=== PATIENT | female | born 1940 | race Caucasian/White ===

== ENCOUNTER 2019-10-14 07:55 | Day surgery (SDC) | payer MEDICARE, BC ==
[2019-10-03 12:42] LABS: BASOPHILS % (AUTO) 0.6 % (0-1); EOSINOPHILS # (AUTO) 0.1 X10'3 (0-0.9); EOSINOPHILS % (AUTO) 2.5 % (0-6); LYMPHOCYTES # (AUTO) 0.7 X10'3 (1.1-4.8); LYMPHOCYTES % (AUTO) 13.2 % (21-51); MEAN CORPUSCULAR HEMOGLOBIN 28.8 PG (27.0-31.0); MEAN CORPUSCULAR HGB CONC 33.9 g/dL (33.0-36.5); MEAN CORPUSCULAR VOLUME 84.9 FL (78-98); MEAN PLATELET VOLUME 9.5 FL (7.4-10.4); MONOCYTES # (AUTO) 0.4 X10'3 (0-0.9); MONOCYTES % (AUTO) 6.7 % (2-12); NEUTROPHILS # (AUTO) 4.1 X10'3 (1.8-7.7); PRE OP HEMATOCRIT 37.3 % (35.0-45.0); PRE OP HEMOGLOBIN 12.6 g/dL (12.0-16.0); PRE OP PLATELET COUNT 156 X10'3 (140-440); RED BLOOD COUNT 4.39 X10'6 (4.20-5.60); RED CELL DISTRIBUTION WIDTH 15.4 % (11.5-14.5)
[2019-10-03 12:53] LABS: PRE OP PROTIME 10.6 SECONDS (9.0-12.0)
[2019-10-03 13:35] LABS: ALBUMIN 3.9 G/DL (3.4-5.0); ALBUMIN/GLOBULIN RATIO 0.9 (1.1-1.5); ALKALINE PHOSPHATASE 149 IU/L (46-116); BLOOD UREA NITROGEN 33 MG/DL (7-18); BUN/CREATININE RATIO 17.6 (6.6-38.0); CALCIUM 8.8 MG/DL (8.5-10.1); CHLORIDE 99 MMOL/L (99-107); CREATININE 1.88 MG/DL (0.40-0.90); PRE OP ALT 46 U/L (30-65); PRE OP ANION GAP 10 (8-16); PRE OP AST 28 U/L (10-37); PRE OP BILIRUB, TOTAL 0.9 MG/DL (0.0-1.0); PRE OP GLUCOSE 195 MG/DL (70-104); PRE OP POTASSIUM 4.3 MMOL/L (3.4-5.1); PRE OP SODIUM 135 MMOL/L (135-145); TOTAL PROTEIN 8.2 G/DL (6.4-8.2); eGFR 26 ML/MIN
[~2019-10-14] VITALS: Ht 165.1 cm; Wt 73.5 kg
[~2019-10-14 07:55] MED LIST: ASPI-611 PO; ATOR40TA PO; CLON0.1T PO; DIGO125T97 PO; FEBU40TA PO; FURO80TA87 PO; GLIM4TAB7 PO; IRBE150T51 PO; LANTUS SQ; LEVO88TA2 PO; POTA20TA19 PO; ROPI1TAB4 PO; SITA25TA3 PO; cefazolin/dext.iso 2gm/100ml 100 ML IV ONE; famotidine 10mg tablet PO ONE; famotidine 20mg tablet PO ONE; ringers solution, lacted 1,000 ML IV SCH
[2019-10-14 08:05] VITALS: BP 127/79
[2019-10-14] MEDS ORDERED: LIDOcaine 0.5% (5mg/ml) 50ml vial ONE (09:28)
[2019-10-14] MEDS ORDERED: fentaNYL/PF 50MCG/1 ML 2ML syringe ONE (09:29)
[2019-10-14] MEDS ORDERED: midazolam 2 mg/2 ml injection ONE (09:30)
[2019-10-14] MEDS ORDERED: BUPIVAcaine/PF 2.5 mg/ml (0.25%) 30ml vial ONE (09:42)
[2019-10-14] MEDS ORDERED: ringers solution, lacted 1,000 ML IV SCH (09:51)
[2019-10-14] MEDS ORDERED: acetaminophen 1,000mg/100ml IV 100 ML IV PRN (09:55)
[2019-10-14] MEDS ORDERED: labetalol 20mg/4ml (5mg/ml) syringe IV PRN (09:55)
[2019-10-14] MEDS ORDERED: meperidine/PF 25mg/ml syringe IV PRN ×3 (09:55)
[2019-10-14] MEDS ORDERED: proCHLORperazine 10 MG/2 ml inj IV PRN (09:55)
[2019-10-14] MEDS ORDERED: hydrALAZINE 20mg/ml inj. IV PRN (09:55)
[2019-10-14] MEDS ORDERED: ondansetron/PF 4mg/2ml inj IV PRN (09:55)
[2019-10-14] MEDS ORDERED: morphine 4 MG/ML inj SYRINge IV PRN ×2 (09:55)
[2019-10-14] MEDS ORDERED: propofol inj 20 ML IV ONE (10:11)
[2019-10-14 10:19] VITALS: BP 93/42
--- NOTE | 2019-10-14 10:19 | NUR ---
Received from OR via EDU, accompanied by Anesthesiologist SABINO and report given by Anesthesiolgist. PATIENT WITH 22G PIV IN RIGHT UE RUNNING LR AT 100. MEDICATED FOR PAIN UPON ARRIVAL. LEFT WRIST DRESSING IS CDI WITH NO DRAINAGE. PATIENT MOVES ALL FINGERS. + CAP REFILL. VSS Addendum: 10/14/19 at 1034 by Arcenio Johnston RN, RN Amended: Links added.
[2019-10-14 10:29] VITALS: BP 100/62
[2019-10-14 10:39] VITALS: BP 101/64
--- NOTE | 2019-10-14 10:46 | NUR ---
187 BG IN RR Addendum: 10/14/19 at 1051 by Arcenio Brock - SCOT RN Amended: Links added.
[2019-10-14 10:49] VITALS: BP 103/68
--- NOTE | 2019-10-14 10:59 | NUR ---
ALL DC CRITERIA HAS BEEN MET. IV TAKEN OUT WITHOUT COMPLICATIONS. ALL INSTRUCTIONS COVERED AND ALL QUESTIONS ANSWERED. DRESSINGS CDI. OUT VIA WHEELCHAIR TO PERSONAL VEHICLE WHERE PATIENT WAS SECURED IN AND DRIVEN HOME BY FAMILY. SPOUSE AND PATIENT GIVEN ALL DC INSTRUCTIONS AND ALL QUESTIONS WERE ANSWERED. VSS. SPOUSE DRESSED PATIENT. LEFT WRIST/HAND DRESSING IS CDI. Addendum: 10/14/19 at 1120 by Arcenio Johnston RN, RN Amended: Links added.
== END 2019-10-14 10:59 | disposition home or self-care (01) ==
LOC: PAS 07:55
PROVIDERS: ATTEND Orthopaedic Surgery Hand Surgery
DX: M18.12 Unilateral primary osteoarthritis of first carpometacarpal joint, left hand (principal); I48.0 Paroxysmal atrial fibrillation; I25.118 Atherosclerotic heart disease of native coronary artery with other forms of angina pectoris; E11.22 Type 2 diabetes mellitus with diabetic chronic kidney disease; I12.9 Hypertensive chronic kidney disease with stage 1 through stage 4 chronic kidney disease, or unspecified chronic kidney disease; N18.9 Chronic kidney disease, unspecified; I25.2 Old myocardial infarction; E03.9 Hypothyroidism, unspecified; Z87.891 Personal history of nicotine dependence; Z86.73 Personal history of transient ischemic attack (TIA), and cerebral infarction without residual deficits; Z98.890 Other specified postprocedural states; Z95.1 Presence of aortocoronary bypass graft; Z88.0 Allergy status to penicillin; Z88.1 Allergy status to other antibiotic agents; Z88.8 Allergy status to other drugs, medicaments and biological substances; Z79.899 Other long term (current) drug therapy
CPT/HCPCS: 25310; 25447; 36415; 71046; 80053; 82948; 85025; 85610; 85730; J2001; J2175; J2250; J2704; J3010; J3490; J7120; A4215; A4618; A6449; A7000

== ENCOUNTER 2025-05-03 15:36 | Inpatient (IN) | payer MEDICARE, OTHER ==
[~2025-05-03] VITALS: Ht 165.1 cm; Wt 82.9 kg
[~2025-05-03 15:36] MED LIST changes: +POTA-207 PO; -POTA20TA19 PO; -ROPI1TAB4 PO; +ROPI1TAB47 PO; -cefazolin/dext.iso 2gm/100ml 100 ML IV ONE; -famotidine 10mg tablet PO ONE; -famotidine 20mg tablet PO ONE; -ringers solution, lacted 1,000 ML IV SCH
--- NOTE | 2025-05-03 16:01 | ELECTROCARDIOGRAPH REPORT ---
[facility] Test Date: 2025-05-03 Test Time: 15:50:12 Pat Name: BRENDA LUNA Department: EMERGENCY ROOM Room: Gender: F Mortgage Loan Processor: FAVIOLA : 1940 Requested By: GILA GONZALEZ Order Number: [id number] Reading MD: Measurements Intervals [place] Rate: 70 P: 123 IL: 231 QRS: -1 QRSD: 93 T: 27 QT: 485 QTc: 524 Interpretive Statements Sinus rhythm Atrial premature complex Prolonged IL interval Prolonged QT interval Please click the below link to view image of tracing.
--- NOTE | 2025-05-03 16:30 | RADIOLOGY REPORT ---
CHEST RADIOGRAPH Indication: CP Technique: Single frontal view of the chest was obtained COMPARISON: None FINDINGS: Lines and Tubes: Median sternotomy Lungs: Clear Pleura: No effusion. No pneumothorax. Cardiomediastinal contours: Unremarkable Bones: Unremarkable IMPRESSION: No acute disease.
[2025-05-03 17:42] LABS: MEAN PLATELET VOLUME 10.3 FL (7.4-10.4); RED CELL DISTRIBUTION WIDTH 17.1 % (11.5-14.5)
[2025-05-03 17:54] LABS: CREATININE 1.54 MG/DL (0.40-0.90); PRO BRAIN NATRIURETIC PEPTIDE 694 PG/ML (0-450); TOTAL CARBON DIOXIDE 25.2 MMOL/L (24-32); eCRCL 25 ML/MIN; eGFR 32 ML/MIN
--- NOTE | 2025-05-03 18:11 | Physician Documentation ---
History of Present Illness ~ Chief Complaint: Chest Pain Stated Complaint: POSS HEART ATTACK Time Seen by MD: 18:01 Mode of Arrival: Dropped Off [facility] Patient presents to the emergency room for evaluation of chest pain. Patient reports history of open heart surgery and she does have diabetes hypertension as well as atrial fibrillation reports compliance with Eliquis. This evening patient was driving home from the store when she began having sudden onset chest pain which was relieved with nitroglycerin. She denies any current chest pain or one-sided leg pain. She reports a negative stress test a proximally one year ago by Dr. Martinez. She does not smoke Medication Reconciliation Allergies: Coded Allergies: Penicillins (Verified Allergy, Mild, RASH, 10/13/19) clindamycin (Verified Allergy, Mild, ERYTHEMA, 10/13/19) Tetracyclines (Verified Adverse Reaction, Mild, HEADACHE, 10/13/19) Scheduled Aspirin (Aspir 81), 1 TAB PO DAILY, (Reported) Atorvastatin Calcium* (Lipitor*), 20 TABLET PO DAILY, (Reported) Clonidine Hcl (Clonidine Hcl), 2 TABLET PO BID, (Reported) Digoxin (LANOXIN tablet), 1 TABLET PO DAILY, (Reported) Febuxostat (Uloric), 1 TAB PO DAILY, (Reported) Furosemide* (Lasix*), 0.5 TAB PO BID, (Reported) Glimepiride* (Amaryl*), 1 TAB PO DAILY, (Reported) Insulin Glargine,Hum.rec.anlog* (Lantus*), 8 UNITS SQ HS, (Reported) Irbesartan* (Avapro*), 1 TAB PO DAILY, (Reported) Levothyroxine Sodium (Synthroid), 75 MCG PO DAILY, (Reported) Potassium Chloride* (K-Dur*), 1 TAB PO BID, (Reported) Ropinirole Hcl (Ropinirole Hcl), 1 TAB PO QID, (Reported) Sitagliptin Phosphate* (Januvia*), 100 MG PO DAILY, (Reported) Review of Systems ROS All review of systems negative except as per HPI Physical Exam Vital Signs: Temperature: 98.8, Source: Oral, Heart Rate: 65, Respiratory Rate: 16, BP: 140/59, Pulse Oximetry: 98, Weight: 82.900 Oxygen Flow Rate: 0 Physical Exam General: Patient is awake, alert, oriented x4 in no acute distress Head: Normocephalic and atraumatic. Eyes: Conjunctival normal. EOMI. PERRL. ENT: Mucous membranes moist. Neck: Supple, trachea is midline. Chest: Clear to auscultation bilaterally without rales, rhonchi, or wheezes. There is no accessory muscle use or retractions. Cardiac: Tachycardic and irregular without murmurs, gallops, or rubs. Abd: Soft, nondistended, nontender, with normoactive bowel sounds. No guarding, rebound, or rigidity. Extremities: Normal strength. Normal range of motion. No deformities or edema. No calf tenderness to palpation Progress Results/Orders Results/Orders Orders - RODERICK JAIN MD Hospitalist (05/03/25 18:39) Fill Out Med Reconciliation (05/03/25 18:39) Vital Signs 05/03/25 05/03/25 05/03/25 05/03/25 15:50 16:51 16:53 18:17 Temp 98.8 98.8 Pulse 64 65 70 Resp 16 16 18 B/P (MAP) 147/53 140/59 (86) 132/78 (96) Pulse Ox 96 98 97 O2 Flow Rate 0 0 05/03/25 19:38 Pulse 68 Resp 18 B/P (MAP) 140/84 (102) Pulse Ox 99 Laboratory Tests Test 05/03/25 15:53 05/03/25 18:09 05/03/25 18:57 White Blood Count 6.0 Red Blood Count 4.15 L Hemoglobin 11.4 L Hematocrit 34.7 L Mean Corpuscular Volume 83.5 Mean Corpuscular Hemoglobin 27.5 Mean Corpuscular Hemoglobin Concent 32.9 L Red Cell Distribution Width 17.1 H Platelet Count 147 Mean Platelet Volume 10.3 Neutrophils (%) (Auto) 73.0 Lymphocytes (%) (Auto) 15.0 L Monocytes (%) (Auto) 5.6 Eosinophils (%) (Auto) 5.5 Basophils (%) (Auto) 0.9 Neutrophils # (Auto) 4.4 Lymphocytes # (Auto) 0.9 L Monocytes # (Auto) 0.3 Eosinophils # (Auto) 0.3 Basophils # (Auto) 0.1 CBC Comment Sodium Level 138 Potassium Level 4.2 Chloride Level 103 Carbon Dioxide Level 25.2 Anion Gap 10 Blood Urea Nitrogen 30 H Creatinine 1.54 H Estimated GFR/1.73 m2 32 BUN/Creatinine Ratio 19.5 Glucose Level 137 H Calcium Level 9.1 Troponin I High Sensitivity 6 7 8 Pro-B-Type Natriuretic Peptide 694 H Albumin 3.8 Chemistry Comments Troponin I High Sens Percent Delta 16 14 Troponin I Hi Sens Absolute Change 1 1 EKG/XRAY/CT/US/VASC/MRI EKG : Additional Comment EKG interpreted by myself shows time of 15 50, rate 70, sinus rhythm, normal axis, no ST changes Chest X-Ray : Additional Comments Exam: CHEST,SINGLE VIEW CHEST RADIOGRAPH Indication: CP Technique: Single frontal view of the chest was obtained COMPARISON: None FINDINGS: Lines and Tubes: Median sternotomy Lungs: Clear Pleura: No effusion. No pneumothorax. Cardiomediastinal contours: Unremarkable Bones: Unremarkable IMPRESSION: No acute disease. Medical Decision Making Findings Patient presented to the emergency room with chest pain as per HPI. Differentia ls include but are not limited to ACS, pulmonary embolism, musculoskeletal pain, pneumothorax therefore emergent labs and imaging indicated. Labs and imaging reassuring. Of concern is patient's story with decreased pain with nitroglycerin. Given patient's history age and risk factors she is considered high risk with a heart score of six and we will admit for further investigation. No current pain or calf tenderness and he had not feel patient requires investigation into possible pulmonary embolism or acute aortic pathology Departure Admitted to Inpatient Unit: yes, to hospitalist Impression: Primary Impression: Chest pain Condition: Guarded Referrals: NO PRIMARY CARE PROVIDER (PCP) Signature Scribe Signature: No scribe Attestation: The note accurately reflects work and decisions made by me.Roderick Jain MD 05/03/25 18:45 RODERICK JAIN MD May 03, 2025 18:11
[2025-05-03] MEDS ORDERED: magnesium hydroxide 30ml (MOM) UD suspension PO PRN (19:55)
[2025-05-03] MEDS ORDERED: glucagon, human recombinant 1mg kit SUBCUT PRN (19:55)
[2025-05-03] MEDS ORDERED: mag hydrox/Alum hydrox/simeth 30ml oral suspension PO PRN (19:55)
[2025-05-03] MEDS ORDERED: ondansetron/PF 4mg/2ml inj IV PRN (19:55)
[2025-05-03] MEDS ORDERED: magnesium sulf-water 2g/50mL 50 ML IV PRN (19:55)
[2025-05-03] MEDS ORDERED: dextrose 50%-water 50ml dispensing syringe IV PRN ×2 (19:55)
[2025-05-03] MEDS ORDERED: magnesium Cl slow-release 64mg tablet PO PRN (19:55)
[2025-05-03] MEDS ORDERED: potassium Cl 40MEQ/1/2NS 520ml 520 ML IV PRN (19:55)
[2025-05-03] MEDS ORDERED: DEXTROSE 15 GM of carb/4 tabs (each vial/BOTTLE has 4 tablets) PO PRN ×2 (19:55)
[2025-05-03] MEDS ORDERED: magnesium sulf-water 4G/100mL 100 ML IV PRN (19:55)
[2025-05-03] MEDS ORDERED: potassium Cl 20 mEq SR tablet PO PRN (19:55)
[2025-05-03] MEDS: K and/or MAG REPLACEMENT MC SCH (20:00)
--- NOTE | 2025-05-03 20:25 | HISTORY AND PHYSICAL-Residence ---
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 during a stressful situation, associated with shortness of breath, nausea and weakness. The chest pain subsided immediately after 2 sublingual nitroglycerin tablets and had a duration of approximately 30 minutes. She denies palpitation, dizziness or lightheadedness but states recurrent episodes of bradycardia. Patient also reports increasing gain of weight recently associated with tiredness and mildly lower quadrant abdominal discomfort and distention. No other symptom reported. Allergies: Coded Allergies: Penicillins (Verified Allergy, Mild, RASH, 10/13/19) clindamycin (Verified Allergy, Mild, ERYTHEMA, 10/13/19) Tetracyclines (Verified Adverse Reaction, Mild, HEADACHE, 10/13/19) Home Medications Home Medications Active Reported Lantus* (Insulin Glargine) 100 Unit/1 Ml Vial 8 Units SQ HS Clonidine Hcl 0.1 Mg Tablet 2 Tablet PO BID Uloric (Febuxostat) 40 Mg Tablet 1 Tab PO DAILY Avapro* (Irbesartan) 150 Mg Tablet 1 Tab PO DAILY LANOXIN tablet (Digoxin) 125 Mcg Tablet 1 Tablet PO DAILY Synthroid (Levothyroxine Sodium) 88 Mcg Tablet 75 Mcg PO DAILY Aspir 81 (Aspirin) 81 Mg Tablet.dr 1 Tab PO DAILY Januvia* (Sitagliptin Phosphate*) 25 Mg Tablet 100 Mg PO DAILY Amaryl* (Glimepiride) 4 Mg Tablet 1 Tab PO DAILY Lipitor* (Atorvastatin Calcium) 40 Mg Tablet 20 Tablet PO DAILY K-Dur* (Potassium Chloride) 20 Meq Tab.prt.sr 1 Tab PO BID Lasix* (Furosemide) 80 Mg Tablet 0.5 Tab PO BID Ropinirole Hcl 1 Mg Tablet 1 Tab PO QID Past Medical History Past Medical History Atrial fibrillation Type 2 diabetes mellitus complicated with peripheral neuropathy Hyperlipidemia Coronary artery disease COPD Chronic hypoxemic respiratory failure Chronic kidney disease Hypothyroidism Heart failure (unknown EF) Lower extremity lymphedema Chronic venous stasis Restless legs syndrome Recurrent UTI Past Surgical History Surgical History Comment CABG in 2017 Mitral valve repair Aortic valve replacement Right middle lung surgery Appendectomy Tonsillectomy Right foot surgery Past Social History Social History Comment Patient quit smoking when she was 37-year-old. No alcohol or illicit drug use reported. She lives with her who has dementia. Smoking: Quit greater than 1 year Alcohol Use: None Drug Use: None Lives with: Spouse Lives In: Home Occupation: retired ROS Constitutional: Reports: malaise, weakness Eyes: Reports: no symptoms reported ENT: Reports: no symptoms reported Respiratory: Reports: no symptoms reported Cardiovascular: Reports: see HPI, chest pain Gastrointestinal: Reports: abdomen distended, nausea, poor appetite Genitourinary: Reports: no symptoms reported Female Genitalia: Reports: no reported symptoms Neurological: Reports: no symptoms reported Musculoskeletal: Reports: no symptoms reported Integumentary: Reports: no symptoms reported Allergic/Immunologic: Reports: no symptoms reported Hematologic/Lymphatic: Reports: no symptoms reported Endocrine: Reports: no symptoms reported Psychiatric: Reports: no symptoms reported Exam Vitals: Vital Signs Date Time Temp Pulse Resp B/P (MAP) Pulse Ox O2 Delivery O2 Flow Rate FiO2 05/03/25 19:38 68 18 140/84 (102) 99 05/03/25 16:53 98.8 0 General: General: The patient is well developed, well nourished, nontoxic appearing and is in no acute distress. Skin: [place], warm and dry with no rashes. HEENT: Head was normocephalic and atraumatic. Eyes - pupils equal, round, reactive to light and accommodation. Extraocular movements were intact. Conjunctivae were nonicteric. Ears - bilateral tympanic membranes were normal. The mouth and oropharynx were clear with moist mucous membranes. There were no pharyngeal exudates or erythema. Neck: Supple and nontender. There was no jugular venous distention, lymphadenopathy, thyromegaly or masses. Chest: Clear to auscultation bilaterally without wheezes, rales or rhonchi. No accessory muscle use. No dullness to percussion. Heart: Rate regular and rhythmic. S1, S2. 2/6+ subjective systolic murmur. Palpation of the chest wall was normal. No rubs or thrills. Abdomen: Soft, mild tender the lower quadrant but nondistended. Positive bowel sounds. No guarding or rebound. No hepatosplenomegaly or palpable masses. Extremities: Bilateral lower extremity 2+/4+ edema. No cyanosis or clubbing. The patient moves all extremities. Pulses were equal and symmetric. Neurologic: Sensation was intact to light touch throughout. Motor strength was 5/5 in all four extremities. Psychologic: The patient was oriented to person, place and time. The patient demonstrated appropriate judgement and insight Diagnostic Data Last Recorded Lab Results: 05/03/25 1553 05/03/25 1553 Diagnostic Data: Laboratory Tests Test 05/03/25 15:53 05/03/25 18:09 05/03/25 18:57 05/03/25 20:26 White Blood Count 6.0 X10'3 Red Blood Count 4.15 X10'6 Hemoglobin 11.4 g/dl Hematocrit 34.7 % Mean Corpuscular Volume 83.5 FL Mean Corpuscular Hemoglobin 27.5 PG Mean Corpuscular Hemoglobin Concent 32.9 g/dL Red Cell Distribution Width 17.1 % Platelet Count 147 X10'3 Mean Platelet Volume 10.3 FL Neutrophils (%) (Auto) 73.0 % Lymphocytes (%) (Auto) 15.0 % Monocytes (%) (Auto) 5.6 % Eosinophils (%) (Auto) 5.5 % Basophils (%) (Auto) 0.9 % Neutrophils # (Auto) 4.4 X10'3 Lymphocytes # (Auto) 0.9 X10'3 Monocytes # (Auto) 0.3 X10'3 Eosinophils # (Auto) 0.3 X10'3 Basophils # (Auto) 0.1 X10'3 CBC Comment Sodium Level 138 MMOL/L Potassium Level 4.2 MMOL/L Chloride Level 103 MMOL/L Carbon Dioxide Level 25.2 MMOL/L Anion Gap 10 Blood Urea Nitrogen 30 MG/DL Creatinine 1.54 MG/DL Estimated GFR/1.73 m2 32 ML/MIN BUN/Creatinine Ratio 19.5 Glucose Level 137 MG/DL Lactic Acid Level 0.9 MMOL/L Calcium Level 9.1 MG/DL Troponin I High Sensitivity 6 ng/L 7 ng/L 8 ng/L Pro-B-Type Natriuretic Peptide 694 PG/ML Albumin 3.8 G/DL 3.7 G/DL Chemistry Comments Total Bilirubin 0.9 MG/DL Direct Bilirubin 0.2 MG/DL Aspartate Amino Transf (AST/SGOT) 16 U/L Alanine Aminotransferase (ALT/SGPT) 18 U/L Alkaline Phosphatase 112 IU/L Troponin I High Sens Percent Delta 16 % 14 % Troponin I Hi Sens Absolute Change 1 ng/L 1 ng/L C-Reactive Protein 0.08 MG/DL Total Protein 6.8 G/DL Globulin 3.1 G/DL Albumin/Globulin Ratio 1.2 Triglycerides Level 106 MG/DL Cholesterol Level 146 MG/DL LDL Cholesterol 62 MG/DL HDL Cholesterol 65 MG/DL Cholesterol/HDL Ratio 2.2 D-Dimer Comment Advance Care Planning Advanced Care plannin - 30 Minutes (I have discussed advanced care directives and the patient wants to be DNR) Additional Plan Assessment This is a 84-year-old female patient with an extensive past medical history of atrial fibrillation, 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 Troponin curve was negative and the patient was admitted for further workup. Plan Chest pain, high risk patient HEART Score 6 points, [place] 0 points Troponin negative EKG 15:50: Sinus rhythm, nonspecific ST-T changes CXR: No acute disease. Ordered D-dimer Ordered procalcitonin and C-reactive protein Ordered echocardiogram Consider stress test in a.m given the classic presentation Atrial fibrillation Controlled heart rate Current in sinus Continue Eliquis 5 mg b.i.d. Type 2 diabetes mellitus complicated with peripheral neuropathy Ordered A1c Continue Lantus 8 units at bedtime Mild hyper/hypoglycemia protocol Hyperlipidemia Ordered lipid panel Continue atorvastatin 40 mg daily Coronary artery disease Continue aspirin and atorvastatin. COPD - no signs of acute exacerbation Chronic hypoxemic respiratory failure Continue night O2 Albuterol p.r.n. Chronic kidney disease Creatinine 1.54 (baseline 1.88), BUN 30 Hypothyroidism Ordered TSH Continue levothyroxine 88 mcg Heart failure (unknown EF) Lower extremity lymphedema Chronic venous stasis Pending echocardiogram Lasix 20 mg IV b.i.d. Normochromic normocytic anemia, most likely from CKD Hemoglobin 11.4, hematocrit 34.7, MCV 83.5, RDW 17.1 Ordered iron studies Ordered vitamin B12 Restless legs syndrome Continue home medication Recurrent UTI Ordered urinalysis Code Status: DNR DVT prophylaxis: Eliquis Analgesia/sedation: Morphine Line/tube: PIV GI prophylaxis: None Nutrition: Heart healthy diet Physical therapy: Yes Disposition: Admit to PCU/telemetry. Jenny Addendum #1 Neuro: - Monitor for delirium Restless leg syndrome: gabapentin for symptom relief #2 CV: The patient has a history of CAD and suspected acute coronary syndrome. - Continue ASA and statin therapy. Atrial fibrillation with CHADS-2 Score of 2: - Initiate rate control to maintain heart rate < 110 bpm. - Start anticoagulation with Eliquis unless contraindicated. #3 Pulm: History and exam suggestive of COPD. - Continue bronchodilator nebs #4 GI: - Advance diet as tolerated when approved by primary team. #5 Renal: The patient has a history of CKD. - Monitor for signs of fluid overload. - Avoid nephrotoxic agents and adjust medications for renal function. Hypokalemia: - Administer potassium replacement therapy. #6 ID: - Monitor for signs of infection. #7 Endo: The patient has type 2 diabetes mellitus. - Start insulin sliding scale to maintain serum glucose levels between 150- 180 mg/dL. - Continue Lantus The patient has a history of hyperlipidemia: - Continue statin therapy #8 Heme/Onc: - Monitor for bleeding and thrombotic events. - Maintain Hgb >7 g/dL and platelets >10,000/mm. #9 PPx: - Continue chemical DVT prophylaxis I saw this patient and completed a full visual exam via audio-visual HIPAA compliant technology. Date of Service: May 03, 2025 Billing Provider: ADY HOYOS MD, LUCAS, RES May 03, 2025 20:25 ADY HOYOS MD May 04, 2025 11:41
[2025-05-03] MEDS ORDERED: APIX5TAB3 PO (20:46)
[2025-05-03 20:54] LABS: CHOL/HDL RATIO 2.2 (0.00-4.99); LDL CHOLESTEROL 62 MG/DL (50-100)
[2025-05-03] MEDS: INSULIN LISPRO 100 UNIT/ML INSULN.PEN MULTI-DOSE SQ SCH (21:00)
[2025-05-03] MEDS ORDERED: ipratropium 0.5 MG/2.5ML nebule IH PRN (21:00)
[2025-05-03] MEDS ORDERED: albuterol 2.5 MG/3 ML nebule NEB PRN (21:00)
[2025-05-03] MEDS: docusate sod 100mg capsule PO SCH (21:03)
[2025-05-03] MEDS: insulin glargine (Lantus) pen - multi-dose SQ SCH (21:19)
[2025-05-03] MEDS: hydrALAZINE 20mg/ml inj. IV PRN (21:44)
[2025-05-03 22:00] VITALS: BP 170/62; PULSE 77; RESP 12; RESP 18; TEMP 97.6; O2SAT 92; O2SAT 99
[2025-05-03 22:19] LABS: % IRON SATURATION 16 % (11-46)
[2025-05-03 23:35] VITALS: PULSE 68; RESP 18; O2SAT 100
[2025-05-04] VITALS (8 sets, daily range): BP systolic 102–159; BP diastolic 38–52; PULSE 58–67; RESP 14–20; TEMP 97–97.6; O2SAT 95–100
--- NOTE | 2025-05-04 06:23 | ELECTROCARDIOGRAPH REPORT ---
[facility] Test Date: 2025-05-04 Test Time: 00:03:11 Pat Name: BRENDA LUNA Department: [facility] Patient ID: [id number] Room: [place] [address] [address] Gender: F Eap Counselor: : 1940 Requested By: WILLIAN AGUIAR Order Number: [id number] Reading MD: Dr. ATUL Horner Measurements Intervals [place] Rate: 76 P: 0 [place]: 0 QRS: 11 QRSD: 100 T: 19 QT: 415 QTc: 467 Interpretive Statements normal sinus rhythm. , baseline artifact. Low voltage, precordial leads Nonspecific repol abnormality, inferior leads Electronically Signed On 05-05-2025 20:18:[address] ATUL Horner Please click the below link to view image of tracing.
[2025-05-04 06:59] LABS: MEAN PLATELET VOLUME 9.8 FL (7.4-10.4); RED CELL DISTRIBUTION WIDTH 16.9 % (11.5-14.5)
[2025-05-04 07:24] LABS: CREATININE 1.55 MG/DL (0.40-0.90); TOTAL CARBON DIOXIDE 30.7 MMOL/L (24-32); eCRCL 25 ML/MIN; eGFR 32 ML/MIN
[2025-05-04] MEDS: FEBUXOSTAT 40MG TAB PO SCH (08:00)
[2025-05-04] MEDS ORDERED: ISOS30TA10 PO (08:47)
[2025-05-04] MEDS: levoTHYROXINE 75mcg tablet PO SCH (08:48)
[2025-05-04] MEDS: potassium Cl 20 mEq SR tablet PO PRN (08:59)
[2025-05-04] MEDS: digoxin 125mcg (0.125mg) tablet PO SCH (09:34)
[2025-05-04] MEDS ORDERED: LOSA-416 PO (10:05)
[2025-05-04] MEDS ORDERED: PANT40TA54 PO (10:05)
[2025-05-04] MEDS ORDERED: FERR-29 PO (10:05)
[2025-05-04] MEDS ORDERED: CITA10TA93 PO (10:05)
[2025-05-04] MEDS ORDERED: SOTA80TA PO (10:05)
[2025-05-04] MEDS ORDERED: CALC-965 PO (10:05)
[2025-05-04] MEDS ORDERED: LEVE500T PO (10:05)
[2025-05-04] MEDS ORDERED: POTA-197 PO (11:56)
[2025-05-04] MEDS ORDERED: FURO40TA4 PO (11:56)
[2025-05-04] MEDS ORDERED: CITA-311 PO (11:58)
--- NOTE | 2025-05-04 14:01 | CONSULTATION REPORT ---
Cardiac Consultation Report Providers to CC CC: NEELA PUGH MD ~ Progress Note: 84yo woman with HTN, HLD, DM, CAD(s/p CABG), HFimpEF, Afib, CKDIII admitted with CP x 1 day. States she felt anxious/stressed, then had CP that lasted ~ 15 minutes. Took a few NTG that she believes did not really help, but CP eventually subsided. Since, reports CP resolved. Subjective Subjective In the interim, no current CP/SOB. Does reports some bruising to her hands. Objective Vitals Vital Signs Date Time Temp Pulse Resp B/P (MAP) Pulse Ox O2 Delivery O2 Flow Rate FiO2 05/04/25 12:34 63 20 96 Room Air* 0 21 05/04/25 02:00 97.0 118/52 (74) Lab Results: 05/04/25 0625 05/04/25 0625 Objective GENERAL:Awake, alert NAD CV: Reg rhythm, normal rate. ++II/ SM RUSB LUNGS: CTABT GI:+ BS, soft, non-tender EXT: 2+ radial pulses, no edema PSYCH: cooperative Coagulation Studies Laboratory Tests Test 05/03/25 20:26 D-Dimer 0.33 MG/L FEU (0-0.50) D-Dimer Comment Problem\Assessment\Plan Problems/Diagnosis: (1) Chest pain Assessment & Plan: Suspect non-cardiac. EKG without acute ischemic changes, Trop neg. Recent MPI neg. --Cont GDMT with Statin. Not on ASA due to OAC. Cont Sotalol for Afib. --Cont BP control MARISOL PUGH MD May 04, 2025 14:01
[2025-05-04] MEDS ORDERED: LEVO75TA7 PO (14:50)
--- NOTE | 2025-05-04 17:34 | PROGRESS NOTE- Residence ---
Progress Note - Resident Providers to CC Resident Creating Document: MIGUELLUISA, BRIAN ~ Central Line/PICC still needed: N\A Antibiotic Timeout Antibiotic Ordered?: No Subjective The patient was examined bedside. She did not complain of any chest pain today. No complaints of breathlessness, palpitation, pedal edema, dizziness. No acute symptoms over the night. One episode of black tarry stools was reported by the nurse. This is the 1st time that the patient has noticed black tarry stools. Objective Vital Signs Date Time Temp Pulse Resp B/P (MAP) Pulse Ox O2 Delivery O2 Flow Rate FiO2 05/04/25 12:34 63 20 96 Room Air* 0 21 05/04/25 02:00 97.0 118/52 (74) Result Diagram: 05/04/2562405/04/25624 General: The patient is well developed, well nourished, nontoxic appearing and is in no acute distress. Skin: [place], warm and dry with no rashes. HEENT: Head was normocephalic and atraumatic. Eyes - pupils equal, round, reactive to light and accommodation. Extraocular movements were intact. Conjunctivae were nonicteric. Ears - bilateral tympanic membranes were normal. The mouth and oropharynx were clear with moist mucous membranes. There were no pharyngeal exudates or erythema. Neck: Supple and nontender. There was no jugular venous distention, lymphadenopathy, thyromegaly or masses. Chest: Clear to auscultation bilaterally without wheezes, rales or rhonchi. No accessory muscle use. No dullness to percussion. Heart: Rate regular and rhythmic. S1, S2. 2/6+ subjective systolic murmur. Palpation of the chest wall was normal. No rubs or thrills. Abdomen: Soft, mild tender the lower quadrant but nondistended. Positive bowel sounds. No guarding or rebound. No hepatosplenomegaly or palpable masses. Extremities: Bilateral lower extremity 2+/4+ edema. No cyanosis or clubbing. The patient moves all extremities. Pulses were equal and symmetric. Neurologic: Sensation was intact to light touch throughout. Motor strength was 5/5 in all four extremities. Psychologic: The patient was oriented to person, place and time. 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 05/04/2025: D-dimer 0.33, digoxin toxicity negative Echo Normal LV size and wall thickness. Overall systolic function is normal. LVEF is 60%. The aortic root is normal in size. The ascending aorta is normal in size. The IVC is normal in size and collapses >50% with inspiration. The pulmonary valve is normal in structure with mild insufficiency. The tricuspid valve is normal in structure with moderate regurgitation. Normal pericardium. No effusion. Cardiology Dr. Martinez consulted. Paroxysmal Atrial fibrillation [id number] Controlled heart rate, reports paroxysmal bradycardia Current in sinus Patient was taking Eliquis 5 mg b.i.d., we changed it to 2.5 b.i.d. as she meet the criteria age and kidney failure We will plan for loop recorder later with Dr. Martinez Type 2 diabetes mellitus complicated with peripheral neuropathy 05/04/2025: H A1c 6.6 Continue Lantus 8 units at bedtime Mild hyper/hypoglycemia protocol Hyperlipidemia 05/04/2025: Triglyceride 106, cholesterol 146, LDL 62, HDL 65 Continue atorvastatin 40 mg daily COPD - no signs of acute exacerbation Chronic hypoxemic respiratory failure Continue night O2 Albuterol p.r.n. Acute on Chronic kidney disease Creatinine 1.54 (baseline 1.88), BUN 30 IV Lasix 20 b.i.d. started Hypothyroidism: 05/04/2025: TSH 1.06 Continue levothyroxine 88 mcg Normochromic normocytic anemia, most likely from CKD Hemoglobin 11.4, hematocrit 34.7, MCV 83.5, RDW 17.1 05/04/2025: Iron 49, TIBC 302, % saturation 16, ferritin 47 Transferrin reports pending Patient reported 2 times back stool today Ordered stool occult blood Restless legs syndrome Continue home medication Recurrent UTI Denied any urinary symptoms Code Status: DNR DVT prophylaxis: Eliquis Analgesia/sedation: Morphine Line/tube: PIV GI prophylaxis: None Nutrition: Heart healthy diet Physical therapy: Yes Disposition: Admit to PCU/telemetry. Luisa Rivera PGY1, Internal Medicine Date of Service: May 04, 2025 Billing Provider: XIOMARA LUIS MD Common Visit Codes: [id number] INP/OBS CARE(HIGH) LUISA RIVERA, RES May 04, 2025 17:34 BRITTON BOONE, RES May 04, 2025 19:52 XIOMARA LUIS MD May 05, 2025 06:22
[2025-05-04 19:10] LABS: OCCULT BLOOD STOOL NEGATIVE (Neg)
[2025-05-04] MEDS: sotalol HCl 40mg (1/2 tablet) PO SCH (20:17)
[2025-05-05 02:00] VITALS: BP 125/90; PULSE 68; RESP 13; TEMP 97.5; O2SAT 97
[2025-05-05 06:00] VITALS: BP 146/53; PULSE 55; RESP 14; TEMP 97.6; O2SAT 95
[2025-05-05 06:54] LABS: MEAN PLATELET VOLUME 9.5 FL (7.4-10.4); RED CELL DISTRIBUTION WIDTH 16.7 % (11.5-14.5)
[2025-05-05 07:46] LABS: CREATININE 1.56 MG/DL (0.40-0.90); TOTAL CARBON DIOXIDE 29.8 MMOL/L (24-32); eCRCL 25 ML/MIN; eGFR 32 ML/MIN
[2025-05-05 08:00] VITALS: RESP 16; O2SAT 96
[2025-05-05] MEDS ORDERED: APIX5TAB3 PO (08:53)
[2025-05-05 09:02] VITALS: PULSE 65; RESP 20; O2SAT 95
--- NOTE | 2025-05-05 09:19 | CARDIOLOGY REPORT ---
APPROVED REPORT EXAM: Comprehensive 2D, Doppler, and color-flow Echocardiogram. Patient Location: [facility] Blood Pressure: 118/52 mmHg Heart Rate: 66 bpm Indications Valvular Heart Disease ProBNP: 694 HX of Coronary Artery Disease HX of CABG (2016) Aortic Valve Replacement (2016) Mitral Valve Repair (2016) Hypertension Atrial Fibrillation Diabetes ARC WELDER: Radha Martinez MD Previous ECHO: 12/13/24, CVC, EF: 60; mod RVE/LAE; AVR GRAD: 50 / 29; PKV: 3.55; MV Ring GRAD: 24 / 6; PKV: 2.46; m MR; m-mod TR 2D Dimensions LA Diam3.9 cm IVSd 0.9 (0.7-1.1cm) LVDd 4.0 cm PWd 1.2 (0.7-1.1cm) IVSs 0.8 (0.8-1.2cm) LVDs 2.7 (2.5-4.0cm) PWs 1.9 (0.8-1.2cm) LVEF(%) 60.3 (>50%) Ao Asc Diam.3.05 cmIVC 19.30 mm FS (%) 31.7 % SV 41.4 ml CO 2.4 L/min M-Mode Dimensions Left Atrium(MM) 3.30 (2.5-4.0cm) Aortic Root 3.91 (2.2-3.7cm) Aortic Valve AoV Peak Ankush. 300.6 cm/s AoV VTI 77.5 cm AO Peak GR. 36.2 mmHg AO Mean GR. 19 mmHg LVOT VTI 44.36 cm LVOT Peak Ankush. 166.2 cm/s Mitral Valve MV E Velocity 184.8 cm/s MV Peak Gr. 21 mmHg MV DECEL TIME 200 ms MV A Velocity 22.6 cm/s MV Mean Gr. 4 mmHg MV PHT 56 ms E/A Ratio 8.2 MVA (PHT) 3.93 cm2 MV TMet747.3 cm/sMV VMean85.1 cm/s MV VTI62.3 cm TDI Lateral E' P. V6.69 cm/s E/Lateral E' 27.6 Pulmonary Valve PAEDP14.26 mmHg Tricuspid Valve TR P. Velocity 391 cm/s RAP ESTIMATE 10 mmHg TR Peak Gr. 61 mmHg RVSP 71 mmHg LEFT VENTRICLE Normal LV size and wall thickness. Overall systolic function is normal. LVEF is 60%. RIGHT VENTRICLE Right ventricle is mildly dilated with adequate function. Elevated right heart pressures with an RVSP of 71 mmHg. ATRIA Left atrium is mildly dilated. AORTIC VALVE Bioprosthetic aortic valve is present, well seated and functioning normally. Peak / mean gradients ar e 36 / 19 mmHg. Peak velocity is measured at 3.00 m/sec. No insufficiency. MITRAL VALVE Mitral Valve Ring present, well seated and functioning normally. Peak / mean gradients are 21 / 4 mmH g. No stenosis. Moderate regurgitation. TRICUSPID VALVE The tricuspid valve is normal in structure with moderate regurgitation. PULMONIC VALVE The pulmonary valve is normal in structure with mild insufficiency. GREAT VESSELS The aortic root is normal in size. The ascending aorta is normal in size. The IVC is normal in size a nd collapses >50% with inspiration. PERICARDIUM Normal pericardium. No effusion. Other Information Study Quality: Adequate Conclusion Normal LV size and wall thickness. Overall systolic function is normal. LVEF is 60%. Right ventricle is mildly dilated with adequate function. Elevated right heart pressures with an RVSP of 71 mmHg. Left atrium is mildly dilated. Bioprosthetic aortic valve is present, well seated and functioning normally. Peak / mean gradients a re 36 / 19 mmHg. Peak velocity is measured at 3.00 m/sec. No insufficiency. Mitral Valve Ring present, well seated and functioning normally. Peak / mean gradients are 21 / 4 mm Hg. No stenosis. Moderate regurgitation. The tricuspid valve is normal in structure with moderate regurgitation. The pulmonary valve is normal in structure with mild insufficiency. Normal pericardium. No effusion.
[2025-05-05 11:00] VITALS: BP 142/81; PULSE 79; RESP 14; TEMP 98; O2SAT 96
--- NOTE | 2025-05-05 13:39 | DISCHARGE SUMMARY-Residence ---
Discharge Summary Providers to Resident Creating Document: SONSHAIKULDIPEdgarLUISA, RES ~ Discharge Summary Admission Diagnosis: ANGINA PECTORIS Hospital Course DATE OF ADMISSION: 05/03/2025 DATE OF DISCHARGE: 05/05/2025 Discharge Diagnosis\Comment: CORONARY ARTERY DISEASE- STABLE ANGINA CHRONIC HEART FAILURE WITH PRESERVED EJECTION FRACTION PAROXYSMAL ATRIAL FIBRILLATION, WITH CONTROLLED HEART RATE ACUTE ON CHRONIC KIDNEY DISEASE NORMOCHROMIC NORMOCYTIC ANEMIA MOST LIKELY FROM CKD TYPE 2 DIABETES MELLITUS COMPLICATED WITH PERIPHERAL NEUROPATHY HYPERLIPIDEMIA COPD/CHRONIC HYPOXEMIC RESPIRATORY FAILURE HYPOTHYROIDISM RESTLESS LEGS SYNDROME Operations\Procedures: None Consultants: Production Estimator-Dr. Kofi Martinez Complications: None Condition on DC: Stable New Medications: Apixaban (Eliquis) 5 Mg Tablet 2.5 MG PO BID for 30 Days, #15 TAB Continued Medications: Atorvastatin Calcium* (Lipitor*) 40 Mg Tablet 2 TABLET PO DAILY, TABLET Calcium Carb & Cit/Vitamin D3 (Calcium + D3 Er Tablet) 600MG-12.5 Tablet.er 1 EACH PO DAILY, TAB.SR Citalopram Hydrobromide (Celexa) 10 Mg Tablet 1 TAB PO DAILY for 30 Days, #30 TAB 0 Refills Ferrous Sulfate (Iron) 325 Mg (65 Mg Iron) Tablet 1 TAB PO DAILY for 30 Days, #30 TAB 0 Refills Furosemide (Furosemide) 40 Mg Tablet 2 TAB PO BID Insulin Glargine,Hum.rec.anlog* (Lantus*) 100 Unit/1 Ml Vial 8 UNITS SQ HS, VIAL Isosorbide Dinitrate (Isosorbide Dinitrate) 30 Mg Tablet 1 TABLET PO BID Levetiracetam (Levetiracetam) 500 Mg Tablet 1 TAB PO BID Levothyroxine Sodium (Levothyroxine Sodium) 75 Mcg Tablet 1 TAB PO DAILY Losartan* (Cozaar*) 50 Mg Tablet 1 TAB PO DAILY for 30 Days, #30 TAB Pantoprazole Sodium (Pantoprazole Sodium) 40 Mg Tablet.dr 1 TAB PO BID Potassium Chloride (Klor-Con M20) 20 Meq Tab.er.prt 1 TAB PO BID for 30 Days, #30 TAB 0 Refills Ropinirole Hcl (Ropinirole Hcl) 1 Mg Tablet 1 TAB PO QID, TAB Sitagliptin Phosphate* (Januvia*) 25 Mg Tablet 100 MG PO DAILY, TAB Discontinued Medications: Apixaban (Eliquis) 5 Mg Tablet 1 TAB PO BID Sotalol Hcl (Sotalol) 80 Mg Tablet 0.5 TAB PO Q12H Discharge Summary: History of present illness: This is a 84-year-old female patient with a past medical history of atrial fibrillation, 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 when she was walking around the grocery store pushing a shopping cart, associated with shortness of breath, nausea and weakness. The chest pain subsided immediately after 2 sublingual nitroglycerin tablets and lasted for a duration of approximately 30 minutes. She denies palpitation, dizziness or lightheadedness but states recurrent episodes of bradycardia. Patient also reports increasing gain of weight recently associated with tiredness and mildly lower quadrant abdominal discomfort and distention. Her last Lexiscan in 2023 was negative for inducible ischemia. Hospital course: Patient did not have any episodes of chest pain during her stay in the hospital. Her regular medications at home were continued in the hospital. Few episodes of bradycardia were recorded with the lowest heart rate being 47 we will sotalol 80 mg. She did not have any symptoms of dizziness or syncope in the hospital. Production Estimator Dr. Kofi Martinez was consulted. He recommended continuing sotalol 80 mg with her other medications following her up outpatient for loop recorder and possible pacemaker implantation. Vital Signs Date Time Temp Pulse Resp B/P (MAP) Pulse Ox O2 Delivery O2 Flow Rate FiO2 05/05/25 11:00 98.0 79 14 142/81 (101) 96 Room Air 05/05/25 09:02 0 21 Physical exam: General: The patient is well developed, well nourished, nontoxic appearing and is in no acute distress. Skin: [place], warm and dry with no rashes. HEENT: Head was normocephalic and atraumatic. Eyes - pupils equal, round, reactive to light and accommodation. Extraocular movements were intact. Conjunctivae were nonicteric. Ears - bilateral tympanic membranes were normal. The mouth and oropharynx were clear with moist mucous membranes. There were no pharyngeal exudates or erythema. Neck: Supple and nontender. There was no jugular venous distention, lymphadenopathy, thyromegaly or masses. Chest: Clear to auscultation bilaterally without wheezes, rales or rhonchi. No accessory muscle use. No dullness to percussion. Heart: Rate regular and rhythmic. S1, S2. 2/6+ subjective systolic murmur. Palpation of the chest wall was normal. No rubs or thrills. Abdomen: Soft, mild tender the lower quadrant but nondistended. Positive bowel sounds. No guarding or rebound. No hepatosplenomegaly or palpable masses. Extremities: Bilateral lower extremity 2+/4+ edema. No cyanosis or clubbing. The patient moves all extremities. Pulses were equal and symmetric. Neurologic: Sensation was intact to light touch throughout. Motor strength was 5/5 in all four extremities. Psychologic: The patient was oriented to person, place and time. The patient demonstrated appropriate judgement and insight Laboratory Tests Test 05/03/25 15:53 05/03/25 18:09 05/03/25 18:57 05/03/25 20:26 White Blood Count 6.0 X10'3 Red Blood Count 4.15 X10'6 Hemoglobin 11.4 g/dl Hematocrit 34.7 % Mean Corpuscular Volume 83.5 FL Mean Corpuscular Hemoglobin 27.5 PG Mean Corpuscular Hemoglobin Concent 32.9 g/dL Red Cell Distribution Width 17.1 % Platelet Count 147 X10'3 Mean Platelet Volume 10.3 FL Neutrophils (%) (Auto) 73.0 % Lymphocytes (%) (Auto) 15.0 % Monocytes (%) (Auto) 5.6 % Eosinophils (%) (Auto) 5.5 % Basophils (%) (Auto) 0.9 % Neutrophils # (Auto) 4.4 X10'3 Lymphocytes # (Auto) 0.9 X10'3 Monocytes # (Auto) 0.3 X10'3 Eosinophils # (Auto) 0.3 X10'3 Basophils # (Auto) 0.1 X10'3 CBC Comment Sodium Level 138 MMOL/L Potassium Level 4.2 MMOL/L Chloride Level 103 MMOL/L Carbon Dioxide Level 25.2 MMOL/L Anion Gap 10 Blood Urea Nitrogen 30 MG/DL Creatinine 1.54 MG/DL Estimated GFR/1.73 m2 32 ML/MIN BUN/Creatinine Ratio 19.5 Glucose Level 137 MG/DL Hemoglobin A1c 6.6 % Lactic Acid Level 0.9 MMOL/L Calcium Level 9.1 MG/DL Troponin I High Sensitivity 6 ng/L 7 ng/L 8 ng/L Pro-B-Type Natriuretic Peptide 694 PG/ML Albumin 3.8 G/DL 3.7 G/DL Chemistry Comments Ferritin 47 NG/ML Total Bilirubin 0.9 MG/DL Direct Bilirubin 0.2 MG/DL Aspartate Amino Transf (AST/SGOT) 16 U/L Alanine Aminotransferase (ALT/SGPT) 18 U/L Alkaline Phosphatase 112 IU/L Troponin I High Sens Percent Delta 16 % 14 % Troponin I Hi Sens Absolute Change 1 ng/L 1 ng/L C-Reactive Protein 0.08 MG/DL Total Protein 6.8 G/DL Globulin 3.1 G/DL Albumin/Globulin Ratio 1.2 Triglycerides Level 106 MG/DL Cholesterol Level 146 MG/DL LDL Cholesterol 62 MG/DL HDL Cholesterol 65 MG/DL Cholesterol/HDL Ratio 2.2 Lipase 60 U/L Procalcitonin < 0.05 NG/ML Thyroid Stimulating Hormone (TSH) 1.06 ulU/ml D-Dimer 0.33 MG/L FEU D-Dimer Comment Test 05/03/25 20:57 05/03/25 21:05 05/03/25 21:09 05/04/25 00:37 Iron Level 49 UG/DL Total Iron Binding Capacity 302 UG/DL Percent Iron Saturation 16 % Digoxin Level < 0.2 NG/ML Glucometer 101 mg/dl Troponin I High Sensitivity 13 ng/L Troponin I High Sens Percent Delta 62 % Troponin I Hi Sens Absolute Change 5 ng/L Test 05/04/25 06:25 05/04/25 07:05 05/04/25 12:24 05/04/25 16:46 White Blood Count 5.3 X10'3 Red Blood Count 4.01 X10'6 Hemoglobin 11.2 g/dl Hematocrit 33.4 % Mean Corpuscular Volume 83.4 FL Mean Corpuscular Hemoglobin 28.0 PG Mean Corpuscular Hemoglobin Concent 33.5 g/dL Red Cell Distribution Width 16.9 % Platelet Count 120 X10'3 Mean Platelet Volume 9.8 FL Neutrophils (%) (Auto) 72.3 % Lymphocytes (%) (Auto) 16.0 % Monocytes (%) (Auto) 5.3 % Eosinophils (%) (Auto) 5.6 % Basophils (%) (Auto) 0.8 % Neutrophils # (Auto) 3.9 X10'3 Lymphocytes # (Auto) 0.9 X10'3 Monocytes # (Auto) 0.3 X10'3 Eosinophils # (Auto) 0.3 X10'3 Basophils # (Auto) 0.0 X10'3 CBC Comment Sodium Level 140 MMOL/L Potassium Level 3.3 MMOL/L Chloride Level 101 MMOL/L Carbon Dioxide Level 30.7 MMOL/L Anion Gap 8 Blood Urea Nitrogen 28 MG/DL Creatinine 1.55 MG/DL Estimated GFR/1.73 m2 32 ML/MIN BUN/Creatinine Ratio 18.1 Glucose Level 138 MG/DL Calcium Level 8.6 MG/DL Magnesium Level 2.6 MG/DL Total Bilirubin 0.9 MG/DL Aspartate Amino Transf (AST/SGOT) 18 U/L Alanine Aminotransferase (ALT/SGPT) 22 U/L Alkaline Phosphatase 107 IU/L Total Protein 6.9 G/DL Albumin 3.6 G/DL Globulin 3.3 G/DL Albumin/Globulin Ratio 1.1 Chemistry Comments Glucometer 122 mg/dl 130 mg/dl Stool Occult Blood Negative Test 05/04/25 17:40 05/04/25 20:11 05/05/25 06:21 05/05/25 07:12 Glucometer 123 mg/dl 175 mg/dl 104 mg/dl White Blood Count 4.5 X10'3 Red Blood Count 3.83 X10'6 Hemoglobin 10.7 g/dl Hematocrit 31.8 % Mean Corpuscular Volume 83.0 FL Mean Corpuscular Hemoglobin 27.8 PG Mean Corpuscular Hemoglobin Concent 33.5 g/dL Red Cell Distribution Width 16.7 % Platelet Count 113 X10'3 Mean Platelet Volume 9.5 FL Neutrophils (%) (Auto) 67.2 % Lymphocytes (%) (Auto) 17.8 % Monocytes (%) (Auto) 7.6 % Eosinophils (%) (Auto) 6.4 % Basophils (%) (Auto) 1.0 % Neutrophils # (Auto) 3.0 X10'3 Lymphocytes # (Auto) 0.8 X10'3 Monocytes # (Auto) 0.3 X10'3 Eosinophils # (Auto) 0.3 X10'3 Basophils # (Auto) 0.0 X10'3 CBC Comment Sodium Level 141 MMOL/L Potassium Level 4.4 MMOL/L Chloride Level 104 MMOL/L Carbon Dioxide Level 29.8 MMOL/L Anion Gap 7 Blood Urea Nitrogen 28 MG/DL Creatinine 1.56 MG/DL Estimated GFR/1.73 m2 32 ML/MIN BUN/Creatinine Ratio 17.9 Glucose Level 111 MG/DL Calcium Level 9.1 MG/DL Magnesium Level 2.8 MG/DL Total Bilirubin 0.9 MG/DL Aspartate Amino Transf (AST/SGOT) 17 U/L Alanine Aminotransferase (ALT/SGPT) 19 U/L Alkaline Phosphatase 107 IU/L Total Protein 6.5 G/DL Albumin 3.4 G/DL Globulin 3.1 G/DL Albumin/Globulin Ratio 1.1 Chemistry Comments Imaging: Echo:Normal LV size and wall thickness. Overall systolic function is normal. LVEF is 60%. Right ventricle is mildly dilated with adequate function. Elevated right heart pressures with an RVSP of 71 mmHg. Left atrium is mildly dilated. Bioprosthetic aortic valve is present, well seated and functioning normally. Peak / mean gradients are 36 / 19 mmHg. Peak velocity is measured at 3.00 m/sec. No insufficiency. Mitral Valve Ring present, well seated and functioning normally. Peak / mean gradients are 21 / 4 mmHg. No stenosis. Moderate regurgitation. The tricuspid valve is normal in structure with moderate regurgitation. The pulmonary valve is normal in structure with mild insufficiency. Normal pericardium. No effusion. Chest x-ray:No acute disease. Discharge course: Patient was cleared by Physical therapy as home independent. She is hemodynamically stable and discharged with the following instruction Visit ER in case of any acute symptoms including chest pain, dizziness, breathlessness, palpitation. Follow with the last waxer for bradycardia and for loop recorder. Your medication Eliquis dosage has been changed from 5mg to 2.5 mg in view of age, kidney function. Watchout for bradycardia sympoms including, dizziness and syncome due to Sotalol 80 mg. *Problems/Diagnosis: (1) Chest pain Status: Acute (2) Coronary artery disease Status: Chronic (3) Stable angina pectoris Status: Chronic (4) Paroxysmal atrial fibrillation Status: Chronic (5) [id number] kidney injury Status: Acute (6) Normochromic normocytic anemia Status: Chronic (7) Type 2 diabetes mellitus Status: Chronic (8) Peripheral neuropathy Status: Chronic (9) Hyperlipidemia Status: Chronic (10) COPD (chronic obstructive pulmonary disease) with emphysema Status: Chronic (11) Chronic hypoxic respiratory failure Status: Chronic (12) Hypothyroid Status: Chronic (13) Restless leg syndrome Status: Chronic Total Time Spent on D/C: > 30 Minutes Counseling Services Smoking & Tobacco Cessation: N/A Date of Service: May 05, 2025 Billing Provider: XIOMARA LUIS MD Common Visit Codes: 36350-SUQ/OBS DISCH DAY >30min LUISA RIVERA, BRIAN May 05, 2025 11:45 XIOMARA LUIS MD May 06, 2025 07:00
== END 2025-05-05 14:02 | disposition home health service (06) | DRG 303 ==
LOC: ER 15:36 → ED HOLD 19:52 → EDBEDREQ 20:29 → PCU 3S 21:30
PROVIDERS: ADMIT Internal Medicine Pulmonary Disease; ATTEND Internal Medicine
DX: I25.118 Atherosclerotic heart disease of native coronary artery with other forms of angina pectoris (principal); J96.11 Chronic respiratory failure with hypoxia; I13.0 Hypertensive heart and chronic kidney disease with heart failure and stage 1 through stage 4 chronic kidney disease, or unspecified chronic kidney disease; I50.32 Chronic diastolic (congestive) heart failure; N39.0 Urinary tract infection, site not specified; N17.9 Acute kidney failure, unspecified; J44.9 Chronic obstructive pulmonary disease, unspecified; E11.22 Type 2 diabetes mellitus with diabetic chronic kidney disease; E11.42 Type 2 diabetes mellitus with diabetic polyneuropathy; N18.9 Chronic kidney disease, unspecified; E03.9 Hypothyroidism, unspecified; G25.81 Restless legs syndrome; E87.6 Hypokalemia; D63.1 Anemia in chronic kidney disease; I48.0 Paroxysmal atrial fibrillation
CPT/HCPCS: 36415; 71045; 80048; 80053; 80061; 80076; 80162; 82272; 82607; 82728; 82948; 83036; 83540; 83550; 83605; 83690; 83735; 83880; 84145; 84443; 84466; 84484; 85025; 85379; 86140; 87081; 93005; 93306; 94760; 96372; 96374; 96375; 97110; 97116; 97162; 99285; A4615; G0378; J0360; J1815; J1938; J2270

== ENCOUNTER 2025-05-23 10:55 | Day surgery (SDC) | payer MEDICARE, OTHER ==
[2025-05-19 14:17] LABS: MEAN PLATELET VOLUME 9.9 FL (7.4-10.4); RED CELL DISTRIBUTION WIDTH 16.7 % (11.5-14.5)
[2025-05-19 14:30] LABS: APTT 29 SECONDS (22-32); INR 1.1 INR
[2025-05-19 14:32] LABS: CHOL/HDL RATIO 2.0 (0.00-4.99); CREATININE 1.40 MG/DL (0.40-0.90); LDL CHOLESTEROL 58 MG/DL (50-100); TOTAL CARBON DIOXIDE 30.3 MMOL/L (24-32); eGFR 36 ML/MIN
[2025-05-23] VITALS (10 sets, daily range): BP systolic 111–150; BP diastolic 53–84; PULSE 73–87; RESP 11–18; TEMP 98.4; O2SAT 96–100
[~2025-05-23] VITALS: Ht 165.1 cm; Wt 84.0 kg
[~2025-05-23 10:55] MED LIST changes: +APIX2.5T PO; -ASPI-611 PO; +CITA-311 PO; -CLON0.1T PO; -DIGO125T97 PO; -FEBU40TA PO; +FERR-29 PO; +FURO40TA4 PO; -FURO80TA87 PO; -GLIM4TAB7 PO; -IRBE150T51 PO; +ISOS30TA10 PO; +LEVE500T PO; +LEVO75TA7 PO; -LEVO88TA2 PO; +LOSA-416 PO; +PANT40TA54 PO; +POTA-197 PO; -POTA-207 PO
--- NOTE | 2025-05-23 11:27 | ELECTROCARDIOGRAPH REPORT ---
[facility] Test Date: 2025-05-23 Test Time: 11:25:44 Pat Name: BRENDA LUNA Department: [facility] Patient ID: [id number] Room: Gender: F Oncology Research Rn: : 1940 Requested By: MARISOL PUGH Order Number: [id number] Reading MD: Dr. ATUL Horner Measurements Intervals [place] Rate: 83 P: 79 NH: 252 QRS: 4 QRSD: 96 T: 33 QT: 393 QTc: 462 Interpretive Statements Sinus rhythm Prolonged NH interval Electronically Signed On 05-23-2025 13:23:[address] ATUL Horner Please click the below link to view image of tracing.
[2025-05-23] MEDS ORDERED: LIDOcaine 1% 30ml preserv. free vial ONE (13:24)
[2025-05-23] MEDS ORDERED: midazolam 1 mg/ML 2ml injection ONE (13:39)
[2025-05-23] MEDS ORDERED: fentaNYL/PF 50MCG/1 ML 2ML syringe ONE (13:39)
[2025-05-23] MEDS ORDERED: ondansetron/PF 4mg/2ml inj IV PRN (14:40)
[2025-05-23] MEDS ORDERED: OXAZEpam 15mg capsule PO PRN (14:40)
--- NOTE | 2025-06-17 09:24 | CARDIOLOGY REPORT ---
DATE OF SERVICE: 05/23/2025 DICTATING PHYSICIAN: Alex Martinez MD CARDIAC CATHETERIZATION REPORT DATE OF STUDY: 05/23/2025. PROCEDURES: * Selective coronary angiography. * Selective coronary artery bypass graft angiography x 1. * Conscious sedation monitoring time for 15 minutes. INDICATION: Continued chest pain. PHYSICIAN: Alex Martinez MD DESCRIPTION OF PROCEDURE: After informed consent was obtained, the patient was brought to the lab where she was prepped and draped in the usual sterile fashion. A 6-[place] sheath was inserted into the right femoral artery. Using a JL4 and a JR4 catheter, selective coronary angiography, and selective coronary artery bypass graft angiography x 1 was performed. Hemostasis was obtained using the Perclose device. HEMODYNAMICS: For the patient's hemodynamics, please refer to the event log. Left ventriculography was not performed. FINDINGS: * Please note limited contrast was used in view of the patient's chronic kidney disease. * Mild disease of the left system. * Mild 20%-30% stenosis of the mid RCA. * The vein graft to the PDA is widely patent. IMPRESSION: * Please note that limited contrast and limited views were taken in view of the patient's chronic kidney disease. * Mild luminal irregularities of the [place] coronary arteries. * Widely patent saphenous vein graft to the PDA of the RCA. * Left ventriculography was not performed. Alex Martinez MD TID: [id number] RECEIPT: [id number] EMELY/DANYEL
== END 2025-05-23 18:14 | disposition home or self-care (01) ==
LOC: SSTAY O 10:55
PROVIDERS: ATTEND Student in an Organized Health Care Education/Training Program
DX: R07.9 Chest pain, unspecified (principal); I25.810 Atherosclerosis of coronary artery bypass graft(s) without angina pectoris; R94.31 Abnormal electrocardiogram [ECG] [EKG]; I12.9 Hypertensive chronic kidney disease with stage 1 through stage 4 chronic kidney disease, or unspecified chronic kidney disease; E11.22 Type 2 diabetes mellitus with diabetic chronic kidney disease; N18.9 Chronic kidney disease, unspecified; E78.00 Pure hypercholesterolemia, unspecified; E03.9 Hypothyroidism, unspecified; I48.91 Unspecified atrial fibrillation; Z86.73 Personal history of transient ischemic attack (TIA), and cerebral infarction without residual deficits; Z79.01 Long term (current) use of anticoagulants; Z79.890 Hormone replacement therapy; Z79.899 Other long term (current) drug therapy; Z88.0 Allergy status to penicillin; Z88.1 Allergy status to other antibiotic agents; Z88.8 Allergy status to other drugs, medicaments and biological substances
CPT/HCPCS: 36415; 80048; 80061; 82948; 83695; 85025; 85610; 85730; 93005; 93455; A6258; J1644; J2003; J2250; J3010; J7030; Q9967; Z7610; 99152

== ENCOUNTER 2025-06-16 10:25 | Emergency (ER) | payer MEDICARE, OTHER ==
[~2025-06-16] VITALS: Ht 165.1 cm; Wt 75.5 kg
[2025-06-16 10:33] VITALS: TEMP 98.6
[2025-06-16 11:03] LABS: MEAN PLATELET VOLUME 9.0 FL (7.4-10.4); RED CELL DISTRIBUTION WIDTH 16.1 % (11.5-14.5)
[2025-06-16 11:23] LABS: CREATININE 1.49 MG/DL (0.40-0.90); TOTAL CARBON DIOXIDE 30.6 MMOL/L (24-32); eCRCL 26 ML/MIN; eGFR 33 ML/MIN
[2025-06-16] MEDS: normal saline 1000ML IV soln IVB ONE (12:13)
[2025-06-16] MEDS ORDERED: iohexol 300mg/ml 100ml inj. ONE (12:41)
--- NOTE | 2025-06-16 13:03 | Physician Documentation ---
History of Present Illness Chief Complaint: Abdominal Pain Stated Complaint: DR REFERRAL Time Seen by MD: 10:31 Primary Medical Doctor: luh Source: patient Mode of Arrival: POV Exam Limitations: no limitations HPI Ms. Cano is an 84 y/o female who presents with c/o diffuse ABD pain. She reports that pain started yesterday and has progressively worsened. She denies N/V/D. No BRBPR or melena. No dysuria or hematuria. No recent ABD trauma. No rash or skin lesions. No recently unexplained weight loss. No fever/chills. Medication Reconciliation Allergies: Coded Allergies: Penicillins (Verified Allergy, Mild, RASH, 06/16/25) clindamycin (Verified Allergy, Mild, ERYTHEMA, 06/16/25) fluconazole (Verified Allergy, Unknown, 06/16/25) levofloxacin (Verified Allergy, Unknown, 06/16/25) Tetracyclines (Verified Adverse Reaction, Mild, HEADACHE, 06/16/25) Scheduled Apixaban (Eliquis), 1 TAB PO Q12H, (Reported) Atorvastatin Calcium* (Lipitor*), 1 TABLET PO DAILY, (Reported) Citalopram Hydrobromide (Celexa), 1 TAB PO DAILY, (Reported) Ferrous Sulfate (Iron), 1 TAB PO DAILY, (Reported) Furosemide (Furosemide), 2 TAB PO BID, (Reported) Insulin Glargine,Hum.rec.anlog* (Lantus*), 6 UNITS SQ HS, (Reported) Isosorbide Dinitrate (Isosorbide Dinitrate), 1 TABLET PO BID, (Reported) Levetiracetam (Levetiracetam), 0.5 TAB PO BID, (Reported) Levothyroxine Sodium (Levothyroxine Sodium), 1 TAB PO DAILY, (Reported) Losartan* (Cozaar*), 1 TAB PO DAILY, (Reported) Pantoprazole Sodium (Pantoprazole Sodium), 1 TAB PO BID, (Reported) Potassium Chloride (Klor-Con M20), 1 TAB PO BID, (Reported) Ropinirole Hcl (Ropinirole Hcl), 1 TAB PO QID, (Reported) Sitagliptin Phosphate* (Januvia*), 100 MG PO DAILY, (Reported) Past Medical History Alcohol Use: None Drug Use: none Lives with: Spouse Lives In: Home Occupation: retired Review of Systems ROS As stated above in the HPI, otherwise all systems are reviewed and negative. Physical Exam Vital Signs: RN Vital Signs have been reviewed: Yes, Temperature: 98.6, Source: Oral, Heart Rate: 77, Respiratory Rate: 16, BP: 144/73, Pulse Oximetry: 96, Weight: 75.450 Oxygen Flow Rate: 0 Physical Exam VITALS: Reviewed and as above. GENERAL: Alert, no apparent distress. HEENT: Normocephalic, atraumatic, PERRL, EOMI, dry mucosa, no erythema RESPIRATORY: Lungs clear, normal breath sounds, no respiratory distress. CHEST: No accessory muscle use, no retractions CV: Regular rate, rhythm, no edema, no murmur, No: JVD GI: Soft, bowels sounds present, no rebound, guarding, or rigidity BACK: No CVA tenderness, or swelling MUSCULOSKELETAL No deformities, no edema SKIN: Warm and dry, no rash NEURO: Oriented x4, No motor or sensory deficit PSYCH: Normal mood and affect, no agitatio Progress Results/Orders Results/Orders Orders - SARI HERNANDEZ MD Urinalysis, Cult If Indicated (06/16/25 10:39) Ct Abdomen Pelvis (06/16/25 11:28) Completed Orders - SARI HERNANDEZ MD Cbc/Diff (06/16/25 10:39) BMP (06/16/25 10:39) Lipase (06/16/25 10:39) CMP (06/16/25 10:39) Hs Troponin I W Calculations (06/16/25 10:40) LA (06/16/25 11:28) Ct Abdomen Pelvis (06/16/25 11:28) Normal Saline 1000ml (0.9% Sodium Chlori (06/16/25 11:35) Iohexol 300mg/Ml 100ml Inj. (Omnipaque-3 (06/16/25 12:41) Medications Received in ER Medications (Trade) Dose Ordered Sig/Bev Route PRN Reason Start Time Stop Time Status Last Admin Dose Admin (0.9% sodium chloride (NS) 1000ml IV soln) 500 ml ONCE ONCE IVB 06/16/25 11:35 06/16/25 11:36 DC 06/16/25 12:13 500 ML Vital Signs 06/16/25 06/16/25 06/16/25 10:33 11:49 12:13 Temp 98.6 Pulse 88 77 Resp 16 16 B/P (MAP) 125/58 144/73 (96) Pulse Ox 97 96 O2 Flow Rate 0 0 Laboratory Tests Test 06/16/25 10:52 White Blood Count 4.7 Red Blood Count 4.13 L Hemoglobin 11.7 L Hematocrit 34.6 L Mean Corpuscular Volume 83.8 Mean Corpuscular Hemoglobin 28.2 Mean Corpuscular Hemoglobin Concent 33.7 Red Cell Distribution Width 16.1 H Platelet Count 135 L Mean Platelet Volume 9.0 Neutrophils (%) (Auto) 85.2 H Lymphocytes (%) (Auto) 6.9 L Monocytes (%) (Auto) 5.0 Eosinophils (%) (Auto) 2.4 Basophils (%) (Auto) 0.5 Neutrophils # (Auto) 4.0 Lymphocytes # (Auto) 0.3 L Monocytes # (Auto) 0.2 Eosinophils # (Auto) 0.1 Basophils # (Auto) 0.0 CBC Comment Sodium Level 140 Potassium Level 3.8 Chloride Level 102 Carbon Dioxide Level 30.6 Anion Gap 7 L Blood Urea Nitrogen 26 H Creatinine 1.49 H Estimated GFR/1.73 m2 33 BUN/Creatinine Ratio 17.4 Glucose Level 140 H Lactic Acid Level 0.8 Calcium Level 8.5 Total Bilirubin 1.1 H Aspartate Amino Transf (AST/SGOT) 18 Alanine Aminotransferase (ALT/SGPT) 16 Alkaline Phosphatase 146 H Troponin I High Sensitivity 7 Total Protein 7.5 Albumin 3.8 Globulin 3.7 Albumin/Globulin Ratio 1.0 L Lipase 54 Chemistry Comments EKG/XRAY/CT/US/VASC/MRI CT : Interpreted By: self CT: abdomen/pelvis With Contrast?: Yes Impression No acute intra-abdominal process (as interpreted by me) Medical Decision Making Differential Dx:Considerations: Include: AAA, Aortic dissection, Appendicitis, Bowel obstruction, Gastritis/PUD, GI hemorrhage, Inflammatory BD, Ischemic bowel , Pancreatitis, Urinary obstruction, Urinary tract infection, Urolithiasis Additional Comments While here in the ED, she remained hemodynamically normal with ABC's intact and in NAD. She is afebrile and nontoxic. On exam, she has diffiuse TTP without rebounding or guarding. No focal tenderness. Labs are without a significant leukocytosis or left shift. Lytes are unremarkable. Lipase and LFT's are normal. Normal lactic. As her exam is diffuse, she was sent for a CT ABD/Pelvis to further evaluate. CT shows signs of constipation but otherwise no acute process. On serial ABD exams, she does not appear to have an acute surgical ABD and is back to her baseline. She is safe for d/c home. Given follow-up and return instructions. She voiced understanding and agreement with d/c instructions. Departure Disposition: HOME / SELF CARE / HOMELESS Impression: Primary Impression: Abdominal pain Condition: Improved Discharge Instructions: Abdominal Pain (Nonspecific) Referrals: NO PRIMARY CARE PROVIDER (PCP) Education Educated: Patient Educated regarding: diagnosis, treatment Signature Scribe Signature: N/A Attestation: N/A SARI HERNANDEZ MD Jun 16, 2025 13:03
--- NOTE | 2025-06-16 13:18 | RADIOLOGY REPORT ---
EXAM: CT CT ABDOMEN PELVIS W/ IV CONTRAST HISTORY: diffuse ABD pain TECHNIQUE: Volumetric multidetector CT images of the abdomen and pelvis were obtained after the administration of intravenous contrast. All CT scans at this facility use dose modulation, iterative reconstruction, and/or weight based dosing when appropriate to reduce radiation dose to as low as reasonably achievable. COMPARISON: None FINDINGS: [LOWER CHEST]: The partially visualized lung bases are clear without a pleural effusion. coronary artery calcifications. [LIVER]: Normal hepatic size without suspicious focal lesion. [GALLBLADDER AND BILIARY TREE]: No cholelithiasis. [SPLEEN]: Unremarkable. [PANCREAS]: Unremarkable. [ADRENAL GLANDS]: Unremarkable [KIDNEYS]: No hydronephrosis. No nephroureterolithiasis. Benign appearing renal cysts, compatible with Bosniak type I cyst. No imaging follow-up required. [BLADDER]: Unremarkable for the degree distention. [REPRODUCTIVE ORGANS]: Hysterectomy. [BOWEL/MESENTERY]: Stomach is normal. No CT evidence of bowel obstruction. minimal scattered colonic diverticulosis. Mild stool burden. [ASCITES]: Absent [LYMPHADENOPATHY]: No pathologically enlarged lymph nodes by CT size criteria [VASCULATURE]: No aneurysmal dilatation. [ABDOMINAL WALL]: Unremarkable. [MUSCULOSKELETAL]: No acute fracture or aggressive focal osseous lesion. Multifocal degenerative change of the visualized spine. IMPRESSION: 1. No CT evidence of an acute abdominal/pelvic process. 2. Mild stool burden. 3. Correlate for constipation.
[2025-06-16 14:17] VITALS: BP 143/66; PULSE 84; RESP 17; O2SAT 97
== END 2025-06-16 14:06 | disposition home or self-care (01) ==
LOC: ER 10:26
DX: R10.84 Generalized abdominal pain (principal); Z88.0 Allergy status to penicillin; Z88.1 Allergy status to other antibiotic agents; Z88.3 Allergy status to other anti-infective agents; Z79.4 Long term (current) use of insulin; Z79.899 Other long term (current) drug therapy
CPT/HCPCS: 36415; 74177; 80053; 83605; 83690; 84484; 85025; 99285; J7030; Q9967